=== PATIENT | female | born 1985 | race Caucasian/White ===

== ENCOUNTER 2017-08-24 11:27 | Emergency (ER) | payer OTHER ==
[~2017-08-24] VITALS: Ht 167.6 cm; Wt 88.5 kg
[~2017-08-24 11:27] MED LIST: AUGMENTIN875 MG PO
[2017-08-24 12:08] LABS: HEMATOCRIT 44.5 % (36.0-46.0); MCH 30.5 PG (29.0-34.0); MCHC 33.7 G/DL (30.0-36.0); MCV 90.6 FL (83-99); MEAN PLAT.VOLUME 9.5 uM^3 (9.5-12.4); PLATELET COUNT 275 K/uL (156-360); RBC DIS.WIDTH-CV 12.8 % (11.8-14.6); RBC DIS.WIDTH-SD 42.7 % (39-53); RED BLOOD COUNT 4.91 M/uL (3.80-5.20)
[2017-08-24 12:21] LABS: CHLORIDE 106 mEq/L (99-109); POTASSIUM 4.5 mEq/L (3.7-5.4); SODIUM 143 mEq/L (136-147)
[2017-08-24 12:23] LABS: GLUCOSE 82 mg/dL (70-99)
[2017-08-24 12:24] LABS: ANION GAP 11 MEQ/L (2-14)
[2017-08-24 12:25] LABS: TOTAL BILIRUBIN 0.3 mg/dL (0.0-1.0)
[2017-08-24 12:26] LABS: ALKALINE PHOSPHATASE 111 IU/L (3-129)
[2017-08-24 12:27] LABS: GFR ESTIMATE (CALCULATED) > 59 mL/min/
[2017-08-24 12:28] LABS: UREA NITROGEN (BUN) 16 mg/dL (9-23)
[2017-08-24 12:36] LABS: QUANTITATIVE HCG < 4.0 MIU/ML
[2017-08-24 12:46] LABS: LIPASE 49 U/L (1.0-51.0)
[2017-08-24] MEDS ORDERED: [UNRECOGNIZED DRUG - REMARK] PO (14:17)
[2017-08-24] MEDS ORDERED: TYLENOL EXTRA500 MG PO (14:18)
[2017-08-24] MEDS ORDERED: ADVIL200 MG PO (14:18)
[2017-08-24 14:25] LABS: ADD MIUA? YES; BILIRUBIN NEGATIVE; BLOOD SMALL; COLOR YELLOW ((YELLOW)); GLUCOSE (STRIP) NEGATIVE; KETONES 20; LEUKOCYTES TRACE; NITRITE NEGATIVE; PROTEIN (STRIP) NEGATIVE; SPECIFIC GRAVITY 1.023 (1.000-1.030); UROBILINOGEN 0.2 MG/DL (0.2-1.0)
[2017-08-24] MEDS ORDERED: ZOFRAN ODT4 MG PO (14:26)
[2017-08-24 14:28] LABS: BACTERIA RARE /HPF; EPITHELIAL CELLS 1+ /HPF; MUCUS TRACE /LPF; RED BLOOD CELLS TNTC /HPF (0-5); UCUL ADDED? YES
[2017-08-24 15:13] VITALS: BP 124/78
== END 2017-08-24 15:14 | disposition home or self-care (01) ==
LOC: EME 11:27
DX: K80.00 Calculus of gallbladder with acute cholecystitis without obstruction (principal); R11.2 Nausea with vomiting, unspecified; F84.0 Autistic disorder
CPT/HCPCS: 76705; 80053; 81003; 83690; 84702; 85027; 87086; 99281; 99284

== ENCOUNTER 2017-08-26 05:33 | Day surgery (SDC) | payer OTHER ==
[~2017-08-26] VITALS: Ht 175.3 cm; Wt 86.6 kg
[~2017-08-26 05:33] MED LIST changes: +ADVIL200 MG PO; +TYLENOL EXTRA500 MG PO; +ZOFRAN ODT4 MG PO; +[UNRECOGNIZED DRUG - REMARK] PO
[2017-08-26 06:13] VITALS: BP 119/87
[2017-08-26] MEDS ORDERED: NORCO 5/3251 TABLET PO (08:34)
[2017-08-26 09:40] VITALS: BP 118/62
[2017-08-26 10:22] VITALS: BP 109/63
[2017-08-26 11:54] VITALS: BP 117/76
== END 2017-08-26 12:00 | disposition home or self-care (01) ==
LOC: SDC
PROC: 0FT44ZZ Resection of Gallbladder, Percutaneous Endoscopic Approach (ICD-10-PCS; principal; 2017-08-26)
DX: K80.10 Calculus of gallbladder with chronic cholecystitis without obstruction (principal); F41.8 Other specified anxiety disorders; K21.9 Gastro-esophageal reflux disease without esophagitis
CPT/HCPCS: 88304; J0131; J1100; J1170; J1885; J2250; J2405; J2710; J3010; Q0175